=== PATIENT | male | born 1945 | race Hispanic/Latino ===

== ENCOUNTER 2017-10-04 05:53 | Emergency (ER) | payer OTHER, BC ==
[~2017-10-04] VITALS: Ht 165.1 cm; Wt 81.2 kg
[~2017-10-04 05:53] MED LIST: Aspirin E.C. PO; DIOVAN; DIOVAN80 MG PO; FLAGYL500 MG PO; Flagyl PO; GLIPIZIDE; GLIPIZIDE XL5 MG PO; GLUCOPHAGE500 MG PO; LEVAQUIN750 MG PO; Levaquin PO; PERCOCET 5/31 TABLET PO; ZOFRAN4 MG PO
[2017-10-04 06:36] LABS: HEMATOCRIT 37.6 % (38.0-50.0); MCH 30.2 PG (29.0-34.0); MCHC 34.6 G/DL (30.0-36.0); MCV 87.2 FL (86-99); MEAN PLAT.VOLUME 11.3 uM^3 (9.0-12.4); PLATELET COUNT 159 K/uL (156-360); RBC DIS.WIDTH-CV 13.1 % (11.8-14.6); RBC DIS.WIDTH-SD 41.1 % (39-53); RED BLOOD COUNT 4.31 M/uL (4.00-5.50); WHITE BLOOD COUNT 10.9 K/uL (4.1-10.2)
[2017-10-04 07:09] LABS: ALKALINE PHOSPHATASE 96 IU/L (3-129); ANION GAP 11 MEQ/L (2-14); CHLORIDE 105 MEQ/L (99-109); GFR ESTIMATE (CALCULATED) > 59 mL/min/; GLUCOSE 152 mg/dL (70-99); LIPASE 143 U/L (1.0-51.0); POTASSIUM 3.9 MEQ/L (3.7-5.4); SAMPLE HEMOLYSIS CHECK 0; SAMPLE ICTERIC CHECK 0; SAMPLE LIPEMIA CHECK 0; SODIUM 137 MEQ/L (136-147); TOTAL BILIRUBIN 0.5 MG/DL (0.0-1.0); UREA NITROGEN (BUN) 15 mg/dL (9-23)
[2017-10-04] MEDS ORDERED: FLAGYL500 MG PO (08:40)
[2017-10-04] MEDS ORDERED: ZOFRAN ODT4 MG PO (08:40)
[2017-10-04] MEDS ORDERED: CIPRO500 MG PO (08:40)
[2017-10-04 09:00] VITALS: BP 138/66
== END 2017-10-04 09:05 | disposition home or self-care (01) ==
LOC: EME 05:53
DX: R10.32 Left lower quadrant pain (principal); K57.32 Diverticulitis of large intestine without perforation or abscess without bleeding; N20.0 Calculus of kidney; K76.0 Fatty (change of) liver, not elsewhere classified; I10 Essential (primary) hypertension; E11.9 Type 2 diabetes mellitus without complications; Z79.84 Long term (current) use of oral hypoglycemic drugs; Z79.82 Long term (current) use of aspirin; Z87.442 Personal history of urinary calculi
CPT/HCPCS: 74177; 80053; 81003; 83690; 85027; 99281; 99285; J1885; J2405; J3010; J7030

== ENCOUNTER 2018-01-12 11:31 | Emergency (ER) | payer OTHER, BC ==
[~2018-01-12] VITALS: Ht 165.1 cm; Wt 82.8 kg
[~2018-01-12 11:31] MED LIST changes: +CIPRO500 MG PO; +ZOFRAN ODT4 MG PO
[2018-01-12 12:40] LABS: HEMATOCRIT 38.3 % (38.0-50.0); HEMOGLOBIN 13.3 G/DL (12.5-16.6); MCH 30.3 PG (29.0-34.0); MCHC 34.7 G/DL (30.0-36.0); MCV 87.2 FL (86-99); PLATELET COUNT 177 K/uL (156-360); RBC DIS.WIDTH-CV 12.8 % (11.8-14.6); RBC DIS.WIDTH-SD 40.5 % (39-53); RED BLOOD COUNT 4.39 M/uL (4.00-5.50); WHITE BLOOD COUNT 7.7 K/uL (4.1-10.2)
[2018-01-12 12:43] LABS: APPEARANCE SL.HAZY ((CLEAR)); BILIRUBIN NEGATIVE; BLOOD LARGE; COLOR YELLOW ((YELLOW)); GLUCOSE (STRIP) NEGATIVE; KETONES NEGATIVE; LEUKOCYTES NEGATIVE; NITRITE NEGATIVE; PROTEIN (STRIP) 30; SPECIFIC GRAVITY 1.017 (1.000-1.030); UROBILINOGEN 0.2 MG/DL (0.2-1.0)
[2018-01-12 12:48] LABS: CHLORIDE 106 mEq/L (99-109); SODIUM 139 mEq/L (136-147)
[2018-01-12 12:49] LABS: GLUCOSE 157 mg/dL (70-99)
[2018-01-12 12:53] LABS: CREATININE 1.2 mg/dL (0.6-1.3); GFR ESTIMATE (CALCULATED) > 59 mL/min/ (58.99-99999)
[2018-01-12 12:54] LABS: UREA NITROGEN (BUN) 12 mg/dL (9-23)
[2018-01-12 13:11] LABS: BACTERIA RARE /HPF; EPITHELIAL CELLS NONE SEEN /HPF; MUCUS NONE SEEN /LPF; RED BLOOD CELLS 40-50 /HPF (0-5); WHITE BLOOD CELLS NONE SEEN /HPF (0-5)
[2018-01-12] MEDS ORDERED: NORCO 5/3251 TABLET PO (15:10)
[2018-01-12] MEDS ORDERED: FLOMAX0.4 MG PO (15:10)
[2018-01-12 15:26] VITALS: BP 137/80
[2018-01-13] MEDS ORDERED: TORADOL10 MG PO (21:26)
[2018-01-13] MEDS ORDERED: PERCOCET 5/31 TABLET PO (21:26)
== END 2018-01-12 15:27 | disposition home or self-care (01) ==
LOC: EME 11:31
PROVIDERS: Physician Assistant
DX: N13.2 Hydronephrosis with renal and ureteral calculous obstruction (principal); N50.811 Right testicular pain; Z87.442 Personal history of urinary calculi; E11.9 Type 2 diabetes mellitus without complications; Z79.84 Long term (current) use of oral hypoglycemic drugs; I10 Essential (primary) hypertension; Z90.49 Acquired absence of other specified parts of digestive tract; Z79.82 Long term (current) use of aspirin
CPT/HCPCS: 74176; 76870; 80048; 81003; 85027; 99281; 99284; J1885

== ENCOUNTER 2018-01-13 18:00 | Emergency (ER) | payer OTHER, BC ==
[~2018-01-13] VITALS: Ht 165.1 cm; Wt 78.2 kg
[~2018-01-13 18:00] MED LIST changes: +FLOMAX0.4 MG PO; +NORCO 5/3251 TABLET PO
[2018-01-13 18:43] LABS: HEMATOCRIT 35.2 % (38.0-50.0); HEMOGLOBIN 12.4 G/DL (12.5-16.6); MCH 30.5 PG (29.0-34.0); MCHC 35.2 G/DL (30.0-36.0); MCV 86.5 FL (86-99); PLATELET COUNT 165 K/uL (156-360); RBC DIS.WIDTH-CV 12.7 % (11.8-14.6); RED BLOOD COUNT 4.07 M/uL (4.00-5.50); WHITE BLOOD COUNT 7.8 K/uL (4.1-10.2)
[2018-01-13 18:55] LABS: CHLORIDE 105 mEq/L (99-109); POTASSIUM 3.9 mEq/L (3.7-5.4); SODIUM 137 mEq/L (136-147)
[2018-01-13 18:57] LABS: GLUCOSE 171 mg/dL (70-99)
[2018-01-13 18:59] LABS: TOTAL BILIRUBIN 0.3 mg/dL (0.0-1.0)
[2018-01-13 19:01] LABS: ALKALINE PHOSPHATASE 97 IU/L (3-129); CREATININE 1.5 mg/dL (0.6-1.3); GFR ESTIMATE (CALCULATED) 49 mL/min/ (58.99-99999)
[2018-01-13 19:02] LABS: UREA NITROGEN (BUN) 17 mg/dL (9-23)
[2018-01-13 19:03] LABS: AST (GOT) 22 IU/L (2-34)
[2018-01-13 19:04] LABS: ALT (GPT) 19 IU/L (3-49)
[2018-01-13 19:24] LABS: APPEARANCE CLEAR ((CLEAR)); BILIRUBIN NEGATIVE; BLOOD LARGE; COLOR YELLOW ((YELLOW)); GLUCOSE (STRIP) NEGATIVE; KETONES NEGATIVE; LEUKOCYTES NEGATIVE; NITRITE NEGATIVE; PROTEIN (STRIP) NEGATIVE; SPECIFIC GRAVITY 1.011 (1.000-1.030); UROBILINOGEN 0.2 MG/DL (0.2-1.0)
[2018-01-13 19:34] LABS: BACTERIA NONE SEEN /HPF; EPITHELIAL CELLS NONE SEEN /HPF; MUCUS TRACE /LPF; RED BLOOD CELLS TNTC /HPF (0-5); WHITE BLOOD CELLS 0-5 /HPF (0-5)
[2018-01-13] MEDS ORDERED: TORADOL10 MG PO (21:26)
[2018-01-13] MEDS ORDERED: PERCOCET 5/31 TABLET PO (21:26)
[2018-01-13 21:37] VITALS: BP 118/63
== END 2018-01-13 21:50 | disposition home or self-care (01) ==
LOC: EME 18:00
PROVIDERS: Nurse Practitioner Family
DX: N20.0 Calculus of kidney (principal); E11.9 Type 2 diabetes mellitus without complications; I10 Essential (primary) hypertension; Z87.442 Personal history of urinary calculi; Z79.84 Long term (current) use of oral hypoglycemic drugs; Z79.82 Long term (current) use of aspirin
CPT/HCPCS: 80053; 81003; 85027; 99281; 99284; J1885; J2405; J3010; J7030